=== PATIENT | male | born 1945 | race Caucasian/White ===

== ENCOUNTER 2025-01-11 09:25 | Emergency (ER) | payer OTHER, SELFPAY ==
--- NOTE | ~2025-01-11 | XR_ITS ---
EXAMINATION: XR CHEST CLINICAL INFORMATION: SOB COMPARISON: None available. TECHNIQUE: 2 views of the chest were obtained. FINDINGS: No hyperinflation. No consolidation, pleural effusion or pneumothorax. Cardiomediastinal silhouette size is normal. Multilevel mid to lower thoracic spondylosis. XR/XR chest 2V IMPRESSION: No acute airspace disease. Spondylosis, mid thoracic spine. Electronically signed by: Moris Esquivel MD 01/11/2025 10:41 AM EDT
[2025-01-11 10:03] VITALS: BP 161/75; PULSE 82; RESP 18; TEMP 36.7; O2SAT 96; BMI 29.8
--- NOTE | 2025-01-11 10:08 | ECG_ITS ---
Test Reason : sob Blood Pressure : */* mmHG Vent. Rate : 81 BPM Atrial Rate : 81 BPM P-R Int : 196 ms QRS Dur : 98 ms QT Int : 366 ms P-R-T Axes : 32 122 42 degrees QTcB Int : 425 ms Normal sinus rhythm Right axis deviation Incomplete right bundle branch block Possible Right ventricular hypertrophy Abnormal ECG No previous ECGs available Referred By: Generic ED Physician Electronically Signed By: Yasir Baez
--- NOTE | 2025-01-11 10:10 | PC.NURSE ---
LS CTA in triage
[2025-01-11 10:29] LABS: MANUAL DIFF FLAG NO
[2025-01-11 10:30] LABS: Hematocrit 39.1 % (42.0-52.0); Hemoglobin 13.6 g/dl (14.0-18.0); Imm Gran Abs Auto 0.03 X10*3/uL (0.00-0.03); Imm Gran Pct Auto 0.3 % (0.0-0.4); Lymphocytes Absolute Auto 2.1 X10*3/uL (1.2-4.9); Mean Corpuscular HGB Conc 34.8 g/dl (31.0-36.0); Mean Corpuscular Hemoglobin 30.4 pg (27.0-33.0); Mean Corpuscular Volume 87.5 fL (80.0-98.0); NRBC Abs Auto 0.000 X10*3/uL (0.0-0.012); NRBC Pct Auto 0.0 /100WBC (0.0-0.2); Platelet Count 302 X10*3/uL (160-400); Red Blood Count 4.47 X10*6/uL (4.60-5.80); White Blood Count 9.7 X10*3/uL (4.8-10.8)
[2025-01-11 10:47] LABS: Alanine Aminotransferase 30 U/L (0-40); Albumin Level 4.6 g/dL (3.5-5.0); Alkaline Phosphatase 54 U/L (39-117); Anion Gap 13 (12-20); Aspartate Amino Transferase 27 U/L (5-37); Blood Urea Nitrogen 14 mg/dL (9-16); Calcium 10.9 mg/dL (8.4-10.2); Carbon Dioxide 28 mmol/L (22-29); Chloride 105 mmol/L (96-108); Creatinine Clr Calc Pharmacy 70.6; Estimated Glomerular Filt Rate > 60; Potassium 5.8 mmol/L (3.3-5.1); Sodium 140 mmol/L (135-145); Total Protein 7.4 g/dL (6.5-8.0)
--- NOTE | 2025-01-11 10:51 | ED.SOB ---
HPI - SOB/Dyspnea General Chief Complaint: Dyspnea Stated Complaint: sob few days Time Seen by Provider: 01/11/25 10:49 Source: patient Mode of arrival: ambulatory Limitations: no limitations History of Present Illness ED Provider: Luis Freitas PA-C HPI Narrative: 79 yo male with history of HTN, HLD, very physically active who presents to the ER for evaluation of SOB for the last 4 days. He reports he was able to do his usual exercises and weight lifting on Wednesday and Wednesday without difficulty breathing. He feels like he has to take a deep breath to to get more air. Occurs at rest and when he lays down. Has been sleeping with more pillows. Endoreses nasal congestion, sinus pressure and bilateral eye redness for the last 4 days as well. No cough, chest pain, fever, chills, N/V/D or abdominal pain. He had episode of indigestion Wednesday night that resolved on its own. He has RLE edema that is chronic and unchanged. No known sick contacts. He tried to do a home COVID test and it was and showed no result. He gets COVID vax q6 months. Denies hx COPD, asthma, CHF. Quit smoking in 1986 MD elicited complaint: shortness of breath Onset (ago): day(s) (4) Context: recent illness Timing: intermittent Severity: moderate Exacerbating factors: lying flat Relieving factors: nothing Associated symptoms: other (nasal congestion) Treatment prior to arrival: none Related Data Home oxygen amount: none Previous Rx's ?Medication ?Instructions ?Recorded amlodipine 5 mg tablet 5 mg PO DAILY #30 tabs 01/11/25 fluticasone propionate 50 2 spray intranasal DAILY #16 grams 01/11/25 mcg/actuation nasal spray,suspension (Allergy Relief (fluticasone)) Allergies Allergy/AdvReac Type Severity Reaction Status Date / Time No Known Allergies Allergy Verified 01/11/25 10:07 Review of Systems Review of Systems: Yes all other systems are reviewed and are negative [facility] Social History Social History Advance Directives: Yes Advance Directives Information Provided: Yes Advance Directives on File: No Physical Exam Exam: Exam: Appearance: Alert. Oriented X3. No acute distress. Head: normocephalic, atraumatic. Eyes: Pupils equal, round and reactive to light. Bilateral conjunctival and sclera injection without exudates or discharge. ENT: Pharynx normal. No tonsillar swelling or exudate. Neck: Normal inspection. Neck supple. CVS: Normal heart rate and rhythm. Pulses normal. Respiratory: No respiratory distress. Breath sounds normal. No wheezing or rales. Abdomen: Soft and nontender. +BS x4 Skin: Skin warm and dry. Normal skin color. Normal skin turgor. No rashes. Extremities: mild lower extremity edema of the right lower leg. no calf tenderness bilaterally. No joint swelling. Neuro/psych: Oriented X 3. No motor deficit. No sensory deficit. CN II-XII intact. Normal speech and cognition. Vital Signs: Vital Signs: Last Vital Signs Temp 98.9 F 01/11/25 12:40 Pulse 80 01/11/25 12:40 Resp 16 01/11/25 12:40 BP 153/87 H 01/11/25 12:40 Pulse Ox 95 01/11/25 12:40 O2 Del Method Room Air 01/11/25 12:40 BMI result Body Mass Index 29.8 Medications Administered Discontinued Medications Generic Name Dose Route Start Last Admin Trade Name Freq PRN Reason Stop Dose Admin Sodium Chloride 1,000 mls @ 999 mls/hr 01/11/25 11:15 01/11/25 12:12 Ns IV 01/11/25 12:15 Infused .Q1H1M FARIDEH Infusion Sodium Zirconium Cyclosilicate 10 gm 01/11/25 11:20 01/11/25 11:54 Sodium Zirconium Cyclosilicate 10 Gm Powd.Pack PO 01/11/25 11:21 10 gm ONCE ONE Administration Medical Decision Making Medical Decision Making MDM Narrative: 79 yo healthy male with hx HTN and HLD, very active presenting for evaluation of SOB x4 days along w/ bilateral eye redness, nasal congestion. VSS on arrival, BP slighlty elevated. Not hypoxic. Not SOB or having difficulty breathing. Lung sounds are clear. Concern for viral etiology more so than cardiac with his other symptoms. Labs show normal BNP. no hx CHF. Labs also showing hyperkalemia with K 5.8 and calcium elevated 10.9. denies hx of either. he is on lisinopril. EKG without peaked T waves. given lokelma given 1L IVF for hypercalcemia. he tested positive for COVID-19 which explains his symptoms. he is stable for d/c home with outpatient follow up of his labs. advised to hold lisinopril and start norvasc for HTN return precautions discussed Differential Diagnosis Differential Diagnoses: The differential diagnosis associated with the presentation includes acute CHF, PNA, viral illness, sinus infection, post nasal drip, pulmonary edema, pleural effusion, low suspicion for PE or ACS Admission/Observation Consideration of admission/observation: Escalation of care including admission/observation considered Lab Data MDM Lab Attestation statement: I reviewed the patient's lab results. as above 01/11/25 10:24 01/11/25 10:24 Labs: Lab Results 01/11/25 01/11/25 Range/Units 10:21 10:24 WBC 9.7 (4.8-10.8) X10*3/uL RBC 4.47 L (4.60-5.80) X10*6/uL Hgb 13.6 L (14.0-18.0) g/dl Hct 39.1 L (42.0-52.0) % MCV 87.5 (80.0-98.0) fL MCH 30.4 (27.0-33.0) pg MCHC 34.8 (31.0-36.0) g/dl RDW 12.0 (11.0-16.0) % Plt Count 302 (160-400) X10*3/uL MPV 8.6 L (9.4-12.4) fL Immature Gran % (Auto) 0.3 (0.0-0.4) % Neut % (Auto) 64.3 (45-73) % Lymph % (Auto) 21.8 (20-40) % Kane % (Auto) 9.8 (2-11) % Eos % (Auto) 3.5 (0-4) % Baso % (Auto) 0.3 (0-2) % Lymph # (Auto) 2.1 (1.2-4.9) X10*3/uL Kane # (Auto) 1.0 (0.1-1.2) X10*3/uL Eos # (Auto) 0.3 (0.0-0.4) X10*3/uL Baso # (Auto) 0.0 (0.0-0.2) X10*3/uL Abs Immat Gran (auto) 0.03 (0.00-0.03) X10*3/uL Absolute Neuts (auto) 6.2 (2.0-8.3) x10*3/uL Absolute Nucleated RBC 0.000 (0.0-0.012) X10*3/uL Nucleated RBC % (auto) 0.0 (0.0-0.2) /100WBC Sodium 140 (135-145) mmol/L Potassium 5.8 H (3.3-5.1) mmol/L Chloride 105 (96-108) mmol/L Carbon Dioxide 28 (22-29) mmol/L Anion Gap 13 (12-20) BUN 14 (9-16) mg/dL Creatinine 1.07 (0.5-1.4) mg/dL Estim Creat Clear Calc 70.6 Estimated GFR > 60 Random Glucose 141 H (60-115) mg/dL Calcium 10.9 H (8.4-10.2) mg/dL Total Bilirubin 1.1 H (0.0-1.0) mg/dL AST 27 (5-37) U/L ALT 30 (0-40) U/L Alkaline Phosphatase 54 (39-117) U/L B-Natriuretic Peptide 18 (<100) pg/mL Total Protein 7.4 (6.5-8.0) g/dL Albumin 4.6 (3.5-5.0) g/dL Influenza Type A (PCR) NEGATIVE (Negative) Influenza Type B (PCR) NEGATIVE (Negative) RSV RNA Qual (PCR) NEGATIVE (Negative) SARS-CoV-2 RNA (RT-PCR) POSITIVE A (Negative) Independent Interpretation I performed an independent interpretation of an: EKG and Plain X-Ray Interpretation: EKG with normal sinus rhythm, HR 81 bpm, incomplete RBBB, no ST segment elevations or depressions, no peaked T waves CXR wtihout focal consolidation or effusion Radiology Impression Discussion of test interpretation with radiology: I have reviewed the radiologist's reading. Independent Historian Clinical information obtained from an independent historian. History obtained from or confirmed by: Spouse Prescription Management I considered prescription management with: Antiviral and Antibiotic no role for paxlovid Chronic Conditions Patient?s care impacted by: Hypertension Critical Care Time Critical Care Time Critical Care Time: No Discharge Plan Discharge Clinical Impression: COVID-19, Hyperkalemia, Hypercalcemia Acute viral conjunctivitis Qualifiers: Laterality: bilateral Qualified Code(s): B30.9 - Viral conjunctivitis, unspecified Patient Disposition: Home, Self-Care Instructions: COVID-19 (Coronavirus Disease 2019) (ED), How to Recover from COVID-19 at Home (ED) Additional Instructions: You were found to be COVID-19 POSITIVE today. Your chest x-ray and oxygen levels were normal. Rest. Drink plenty of fluids. Take over the counter cold/flu medications as needed for your symptoms. Take Tylenol and/or Motrin as needed for fevers and body aches. Use the prescribed nasal spray for your rhinitis. You were found to have mildly elevated potassium and calcium levels. The potassium was likely a side effect of your lisinopril, recommend holding this until your labs can be repeated by your PCP. Monitor your blood pressure at home. You can take the prescribed amlodipine 5mg for hypertension while you are holding the lisinopril. Follow up with your doctor this week. If you shortness of breath worsens, if you develop difficulty breathing or any other concerning symptom come back to the ER for further evaluation. Prescriptions: New amlodipine 5 mg tablet 5 mg PO DAILY Qty: 30 0RF fluticasone propionate [Allergy Relief (fluticasone)] 50 mcg/actuation spray,suspension 2 spray intranasal DAILY Qty: 16 0RF Rx Instructions: administer into each nostril Referrals: Dali Arias MD [Primary Care Provider, Internal Medicine] Interventions: ED Discharge Assessment Last Done: 01/11/25 12:40 Discharge Date/Time: 01/11/25 12:41 Print Language: Upper Sorbian
[2025-01-11 10:52] LABS: B Type Natriuretic Peptide 18 pg/mL (<100)
[2025-01-11 11:10] LABS: Resp Syncy Virus RNA Qual PCR NEGATIVE (Negative); SARS COV2 PCR INHOUSE POSITIVE (Negative)
[2025-01-11 11:13] VITALS: BP 153/87; PULSE 80; RESP 16; TEMP 37.2; O2SAT 95
[2025-01-11 12:40] VITALS: BP 153/87; PULSE 80; RESP 16; TEMP 37.2; O2SAT 95
--- OUTSIDE RECORDS SUMMARY | 2025-01-11 12:44 | XMS_ITS | Encounter Summary ---
Author Organization [facility] Address [address] [place] [address] Care Team Providers Care Roughener Name Role Phone Dali Arias MD Primary Care Provider Reason for Visit * Reason Onset Date Comments chest congestion 01/11/2025 Shortness of Breath 01/11/2025 Encounter Details Date Type Department Care Team (Late st Contact Info) Description 01/11/2025 Nurse Triage Adult Medicine [facility] [address] [address], [place] [phone] Dali Arias MD [address] [place] [address] chest congestion; Shortness of Breath Social History Tobacco Use Types Packs/Day Years Used Date Smoking Tobacco: Former Cigarettes Q uit: 08/29/1986 Smokeless Tobacco: Never Alcohol Use Standard Drinks/Week Comments No 0 (1 standard drink = 0.6 oz pur e alcohol) Housing Instability Answer Date Recorde d Are you worried that in the next 2 months you may not have stable housing? No 08/08/2024 Food Access & Nutrition Answer Date Rec orded Do you have access to a vari ety of food including fruits and vegetables? Yes 08/08/2024 Access to Healthcare Answer Date Record ed Within the last 3 months, ho w many times did you visit the emergency department for your medical care? 0 08/08/2024 Health Literacy Answer Date Recorded How often do you need to hav e someone help you when you read instructions, pamphlets, or other written material from your doctor or pharmacy? Never 08/08/2024 Caregiver: How often do you need to have someone help you when you read instructions, pamphlets, or other written material from your doctor or pharmacy? Not on file 08/08/2024 Financial Risk Answer Date Recorded How hard is it for you to pa y for the very basics like food, housing, medical care, and air conditioning / heating? Patient declined 08/08/2024 Transportation Answer Date Recorded Has the lack of transportati on kept you from meetings, work, or from getting things needed for daily living? No Has the lack of transportati on kept you from medical appointments or from getting medications? No 08/08/2024 Social Isolation Answer Date Recorded How often do you feel lonely or isolated from th ose around you? Never 08/08/2024 Food Risk Answer Date Recorded Within the past 12 months we worried whether our food would run out before we got money to buy more. Never true 08/08/2024 Within the past 12 months th e food we bought just didn't last and we didn't have money to get more. Never true 08/08/2024 Dependent Care Answer Date Recorded Do you need help finding or paying for care for your loved ones. For example, childbirth educator or elderly care for an older adult? Patient declined 08/08/2024 Education Answer Date Recorded Do you think completing more education or training, like finishing a GED, going to college, or learning a trade, would be helpful for you? N/A 08/08/2024 Employment and Income Answer Date Recor ded During the last four weeks, have you been actively looking for work? No 08/08/2024 Living Situation Answer Date Recorded What is your living situation? 0 08/08/2024 Sex and Gender Information Value Date Recorded Sex Assigned at Not on file Legal Sex Male 8:51 PM EST Gender Identity Not on file Sexual Orientation Not on file documented as of this encounter Progress Notes * Pearl Harmon RN - 01/11/2025 8:45 AM EDT Pt was instructed to go to the ER for further evaluation and treatment. He is in agreement with this plan and states he will go to [facility] ER. He was encouraged to call for an appointment after he is evaluated in the ER. Pt is sleeping with head of bed elevated or sitting up because he is more comfortable. No shortnessof breath at rest. He reports shortness of breath with activity. Reason for Disposition [1] MILD difficulty breathing (e.g., minimal/no SOB at rest, SOB with walking, pulse < 100) AND [2] NEW-onset or WORSE than normal Answer Assessment - Initial Assessment Questions 1. RESPIRATORY STATUS: Describe your breathing? (e.g., wheezing, shortness of breath, unable to speak, severe coughing) He is reporting shallow breathing but feels need for deep breath 2. ONSET: When did this breathing problem begin? 01/08/25. His eyes are also red r/t low air quality because of smoke 3. PATTERN Does the difficult breathing come and go, or has it been constant since it started? Constant 4. SEVERITY: How bad is your breathing? (e.g., mild, moderate, severe) Moderate. He states his breathing was improving throughout the day and worsens again in the evening. Today his symptoms symptoms are worse than they have been. 5. RECURRENT SYMPTOM: Have you had difficulty breathing before? If Yes, ask: When was the last time? and What happened that time? No 6. CARDIAC HISTORY: Do you have any history of heart disease? (e.g., heart attack, angina, bypasssurgery, angioplasty) No 7. LUNG HISTORY: Do you have any history of lung disease? (e.g., pulmonary embolus, asthma, emphysema) He states he had a partially collapsed lung. No history of PE or DVT 8. CAUSE: What do you think is causing the breathing problem? Unknown 9. OTHER SYMPTOMS: Do you have any other symptoms? (e.g., chest pain, cough, dizziness, fever, runny nose) Runny nose and very intermittent cough. He states he coughs 5-6 times a day. 10. O2 SATURATION MONITOR: Do you use an oxygen saturation monitor (pulse oximeter) at home? If Yes, ask: What is your reading (oxygen level) today? What is your usual oxygen saturation reading? (e.g., 95%) No 11. : Is there any chance you are ? When was your last menstrual period? No. Pt is a male. 12. TRAVEL: Have you traveled out of the country in the last month? (e.g., travel history, exposures) He went to [place] in October. No recent air travel. Protocols used: Breathing [id number] * Shira Castillo - 01/11/2025 8:33 AM EDT Patient call requires triage: Symptoms patient is presenting: patient is calling in with chest congestion. He states its getting worse to where he is beginning to have labored breathing. He states he feels like he can move aroundbut he doesn't feel like he's getting enough air. He sleeps sitting up and that helps. He feels like every other breath should be a deep breath. He states that his stomach is also upset. He said it feels like he's got indigestion and gas pressing into his diagram. He took antiacids but that didn't do anything for him. How long has patient had these symptoms?: Day 4 For ALL patients calling to schedule any appointment (routine, sick visit, follow up, consult, etc.) in the outpatient setting please ask the following questions: Do you have fever of higher than 101, sore throat with difficulty swallowing or severe shortness ofbreath? yes If YES to any of these above symptoms, send a message to triage and do not book. Red dot. If no, an audio or video visit should be booked. Have you had close contact with someone with Coronavirus in the last 14 days? no Have you traveled abroad? no Have you traveled recently to another state outside of [place], [place], [place], [place], [place], [place], [place]? no o If yes, did you quarantine for 14 days or have a negative covid test? no If yes to any of the above, patient is not to be scheduled in office until after 14 day quarantine or negative covid test. If pain or injury related was it due to an accident at work or from a motor vehicle accident? If yes, date of accident/Injury: No If yes, gather 3rd constitution party insurance information Third Constitution Party Information: not applicable PCP: Dali Arias MD Payor: [facility] / [place] [facility] [place] Product Type: *No Product type* / documented in this encounter Plan of Treatment Upcoming Encounters Date Type Department Care Team (Late st Contact Info) Description 03/09/2025 2:30 PM EDT Office Visit Adult Medicine [facility] [address] [place] [phone] Jess Christy PA [address] [place] [address] documented as of this encounter Visit Diagnoses Not on filedocumented in this encounter Additional Health Concerns Assessment Noted Time PHQ-9 Depression Total Score: 0 08/09/19 25 1:23 PM EDT documented as of this encounter Care Teams Roughener Relationship Specialty Start Date End Date Dali Arias MD [address] [place] [id number] PCP - General Internal Medicine 08/05/21 documented as of this encounter
== END 2025-01-11 12:41 | disposition home or self-care (01) ==
PROVIDERS: Emergency Provider Emergency Medicine; PCP Internal Medicine
DX: U07.1 COVID-19 (principal); E87.5 Hyperkalemia; E83.52 Hypercalcemia; B30.9 Viral conjunctivitis, unspecified; R06.02 Shortness of breath
CPT/HCPCS: 71046; 80053; 83880; 85025; 87637; 93005; 96360; 99284

== ENCOUNTER → 2025-01-11 10:08 | Outpatient (BNV) | payer BC, SELFPAY | PROVIDERS: Emergency Provider Emergency Medicine; PCP Internal Medicine; Visit Provider Radiology Diagnostic Radiology | DX: R06.02 Shortness of breath (principal); M47.814 Spondylosis without myelopathy or radiculopathy, thoracic region | CPT/HCPCS: 71046 ==

== ENCOUNTER → 2025-01-11 10:08 | Outpatient (BNV) | payer OTHER, SELFPAY | PROVIDERS: Emergency Provider Emergency Medicine; PCP Internal Medicine; Visit Provider Internal Medicine Cardiovascular Disease | DX: I45.10 Unspecified right bundle-branch block (principal) | CPT/HCPCS: 93010 ==

== ENCOUNTER 2025-01-23 11:55 | Emergency (ER) | payer OTHER, SELFPAY ==
--- OUTSIDE RECORDS SUMMARY | 2025-01-22 11:30 | XMS_ITS | Encounter Summary ---
Author Organization [facility] Address [address] [place] [address] Care Team Providers Care Preprint Analyst Name Role Phone Dali Arias MD Primary Care Provider [phone] Reason for Visit * Reason Comments er follow up Encounter Details Date Type Department Care Team ([facility] st Contact Info) Description 01/22/2025 11:30 AM EDT Office Visit Adult Medicine [facility] [address] [place] [address] Katie Delgado PA [address] [place] [address] COVID-19 (Primary Dx); Primary hypertension; Serum potassium elevated; Serum calcium elevated; Type 2 diabetes mellitus with obesity ([facility] V24, [facility] V28) Social History Tobacco Use Types Packs/Day Years Used Date Smoking Tobacco: Former Cigarettes Q uit: 08/29/1986 Smokeless Tobacco: Never Tobacco Cessation:Counseling Given: Not Answered Alcohol Use Standard Drinks/Week Comments No 0 [...] care for your loved ones. For example, child day care teacher or elderly care for an older adult? [...] on file documented as of this encounter Last Filed Vital Signs Vital Sign Reading Time Taken Comments Blood Pressure 127/76 01/22/2025 11:36 AM EDT Pulse 69 01/22/2025 11:36 AM EDT Temperature 36.4 C (97.6 F) 01/22/2025 11:33 AM EDT Respiratory Rate 14 01/22/2025 11:33 AM EDT Oxygen Saturation 98% 01/22/2025 11:33 AM EDT Inhaled Oxygen Concentration - - Weight 99 kg (218 lb 3.2 oz) 01/22/2025 11:33 AM EDT Height 182.9 cm (6') 01/22/2025 11:33 AM EDT Body Mass Index 29.59 01/22/2025 11:33 AM EDT documented in this encounter Ordered Prescriptions Prescription Sig Dispense Quantity Refills Last Filled Start Date End Date amLODIPine (NORVASC) 5 mg tablet Take 1 tablet (5 mg total) by mouth 1 (one) time each day. 90 tablet 01/23/2025 documented in this encounter Progress Notes * CHRISTOPHER Erickson - 01/22/2025 11:30 AM EDTAddended by: KATIE DELGADO on: 01/23/2025 10:40 AM Modules accepted: Orders * CHRISTOPHER Erickson - 01/22/2025 11:30 AM EDT CHIEF COMPLAINT: er follow up IDENTIFIER: Danny Ochoa is a 79 y.o. old male. HPI: Patient presents to the office today for reevaluation following recent COVID-19 illness. On 01/11/2025 patient presented to [facility] emergency room reporting 4 days of shortness of breath. Reported sensation of needing to take a deep breath to get more air. Reported nasal congestion, sinus pressure, eye redness/irritation. Had an episode of indigestion. Chronic unchanged right lower extremity edema. Took COVID-19 home test which showed no result. Examination revealed conjunctival/scleral injection without exudates or discharge. Mild right lower extremity edema. Normal BNP. Potassium elevated at 5.8 and calcium of 10.9. EKG without peaked T waves. Chest x-ray without effu homar or consolidation. Patient was given Lokelma and 1 L of IV fluids. Was positive for COVID-19. Was advised to hold lisinopril and begin amlodipine. Was prescribed Flonase nasal spray. Was advised on close follow-up with PCP to recheck lab work and BP. Today patient reports drastic improvement. No longer having nasal congestion, sinus pressure, or eye redness. Shortness of breath has resolved. He is tolerating amlodipine well. Denies dizziness or worsening leg swelling. Has diet-controlled diabetes with recent A1c adequately controlled at 7%. ROS: GENERAL: SEE HPI HEENT: SEE HPI NECK: SEE HPI RESPIRATORY: SEE HPI CARDIOVASCULAR: No chest pain, leg swelling or palpitations GI: SEE HPI MUSCULOSKELETAL: See HPI SKIN: No lesions, rash or itching NEURO: No persistent headache, syncope, seizures, weakness or numbness PAST MEDICAL HISTORY: Patient Active Problem List Diagnosis Date Noted History of prostate cancer Tubular adenoma 08/12/2023 Hyperlipidemia 08/06/2022 Obesity (BMI 30.0-34.9) 08/06/2022 Hypertension 04/10/2022 Type 2 diabetes mellitus with obesity ([facility] V24, [facility] V28) 03/18/2020 SOCIAL HISTORY: Social History Tobacco Use Smoking status: Former Current packs/day: 0.00 Types: Cigarettes Quit date: 08/29/1986 Years since quittin.4 Smokeless tobacco: Never Substance Use Topics Alcohol use: No FAMILY HISTORY: Family Status Relation Name Status Mother Father MGM MGF PGM PGF Son (Not Specified) No partnership data on file Family History Problem Relation Name Age of Onset Bipolar disorder Mother COPD Father Alcohol abuse Maternal Grandfather Breast cancer Paternal Grandmother s/p masectomy in her 70's Other cancer Son osteosarcoma rt femur (raphael) ACTIVE MEDICATIONS: Outpatient Medications Marked as Taking for the 01/22/25 encounter (Office Visit) with CHRISTOPHER Erickson Medication Sig Dispense Refill amLODIPine (NORVASC) 5 mg tablet Take 1 tablet (5 mg total) by mouth 1 (one) time each day. atorvastatin (LIPITOR) 10 mg tablet Take 1 tablet (10 mg total) by mouth at bedtime. at bedtime. 90tablet 1 cholecalciferol (VITAMIN D-3) 25 mcg (1,000 unit) tablet Take 1 tablet (1,000 Units total) by mouth1 (one) time each day. fluticasone propionate (FLONASE) 50 mcg/actuation nasal spray Administer 2 sprays into each nostril1 (one) time each day. Shake liquid lisinopriL (PRINIVIL,ZESTRIL) 10 mg tablet Take 1 tablet (10 mg total) by mouth at bedtime. 90 tablet 1 multivitamin with minerals tablet Take by mouth 1 (one) time each day. ALLERGIES: Doxycycline monohydrate and Other PHYSICAL EXAM: Blood pressure 127/76, pulse 69, temperature 36.4 ??C (97.6 ??F), temperature source Temporal, resp. rate 14, height 1.829 m (72 ), weight 99 kg (218 lb 3.2 oz), SpO2 98%. Body mass index is 29.59 kg/m??. BMI is greater than 25.0 (above the normal range) - see Plan APPEARANCE: Alert and in no acute distress, appears comfortable EYES: Conjunctiva and sclera normal. NOSE: Nares normal. Mucosa normal. No drainage. MOUTH/THROAT: No stridor. No tripoding. No dysphonia/hoarseness. No trismus. Airway patent. HEART: RRR with normal S1 and S2, no murmurs LUNG: Patient is speaking in full, clear sentences. No increased work of breathing is appreciated. Lungs are clear to auscultation without wheezes, rales, or rhonchi. EXTREMITIES: Extremities warm and well perfused without clubbing, cyanosis. Trace right ankle edema. NEURO: Awake, alert and oriented x 3. SKIN: Skin color, texture, turgor normal. No rashes or lesions. LABS: See HPI/PLAN Lab Results Component Value Date NA 140 08/15/2024 K 4.3 08/15/2024 CL 105 08/15/2024 CO2 27 08/15/2024 GLUCOSE 131 (H) 08/15/2024 BUN 13 08/15/2024 CREATININE 1.07 08/15/2024 CALCIUM 9.6 08/15/2024 PROT 7.3 08/15/2024 ALBUMIN 4.0 08/15/2024 BILITOT 0.9 08/15/2024 AST 24 08/15/2024 ALT 37 08/15/2024 ALKPHOS 57 08/15/2024 EGFR 71 08/15/2024 Lab Results Component Value Date HGBA1C 7.0 (H) 12/07/2024 IMPRESSION: 1. COVID-19 2. Primary hypertension 3. Serum potassium elevated 4. Serum calcium elevated 5. Type 2 diabetes mellitus with obesity ([facility] V24, [facility] V28) PLAN: COVID-19: Acute illness resolved. Blood pressure elevated on arrival although improved on 5-minute average to normal level. Tolerating amlodipine well therefore will continue as directed. For now patient will continue without lisinopril. Await results to determine further therapeutic options and or additional interventions. Diabetes is well- controlled. Will continue to monitor. Continue with low-sodium and low carbohydrate diet and regular activity. Patient understands and agrees to plan. Patient will return to the office for routine care with PCPteam in 6-weeks as scheduled. Will contact the office sooner with any problems or concerns. Orders Placed This Encounter Procedures Comprehensive metabolic panel Standing Status: Future Number of Occurrences: 1 Standing Expiration Date: 01/22/2026 ADDITIONAL ORDERS: None CHRISTOPHER Erickson on 01/22/2025 at 12:12 PM EDT documented in this encounter Plan of Treatment Upcoming Encounters Date Type Department Care Team (Late st Contact Info) Description 03/09/2025 2:30 PM EDT Office Visit Adult Medicine [facility] [address] [place] [phone] Jess Christy PA [address] [place] [address] Scheduled Orders Name Type Priority Associated Diagnoses Orde r Schedule Basic metabolic panel Lab Routine Primary hypertension Serum calcium elevated 1 Occurrences starting 01/23/2025 until 01/23/2026 documented as of this encounter Results * (ABNORMAL) Comprehensive metabolic panel (01/22/2025 12:01 PM EDT) Sodium 137 133 - 145 mmol/L LAB CHEMISTRY METHOD 01/22/2025 4:57 PM EDT [facility] Potassium 4.9 3.5 - 5.5 mmol/L LAB CHEMISTRY METHOD 01/22/2025 4:57 PM EDT [facility] Chloride 103 96 - 110 mmol/L LAB CHEMISTRY METHOD 01/22/2025 4:57 PM EDT [facility] CO2 30 21 - 32 mmol/L LAB CHEMISTRY METHOD 01/22/2025 4:57 PM [facility] Anion Gap 4 3 - 11 LAB CHEMISTRY METHOD 01/22/2025 4:57 PM [facility] Glucose 113(H) 70 - 100 mg/dL LAB CHEMISTRY METHOD 01/22/2025 4:57 PM [facility] BUN 9 5 - 25 mg/dL LAB CHEMISTRY METHOD 01/22/2025 4:57 PM [facility] Creatinine 1.08 0.70 - 1.30 mg/dL LAB CHEMISTRY METHOD 01/22/2025 4:57 PM [facility] eGFR 71 >=60 mL/min/1. 73m2 LAB CHEMISTRY METHOD 01/22/2025 4:57 PM [facility] Comment:Calculation based on the Chronic Kidney Disease Epidemiology Collaboration (CKD-EPI) equation refit without adjustment for race. BUN/Creatinine Ratio 8.3 LAB CHEMISTRY METHOD 01/22/2025 4:57 PM [facility] Calcium 10.9(H) 8.5 - 10.5 mg/dL LAB CHEMISTRY METHOD 01/22/2025 4:57 PM [facility] AST (SGOT) 25 10 - 42 unit/L LAB CHEMISTRY METHOD 01/22/2025 4:57 PM [facility] ALT (SGPT) 41 10 - 60 unit/L LAB CHEMISTRY METHOD 01/22/2025 4:57 PM [facility] Alkaline Phosphatase 59 42 - 121 unit/L LAB CHEMISTRY METHOD 01/22/2025 4:57 PM [facility] Total Protein 7.3 6.0 - 8.0 g/dL LAB CHEMISTRY METHOD 01/22/2025 4:57 PM [facility] Albumin 4.0 3.2 - 5.0 g/dL LAB CHEMISTRY METHOD 01/22/2025 4:57 PM EDT [facility] Total Bilirubin 0.8 0.0 - 1.4 mg/dL LAB CHEMISTRY METHOD 01/22/2025 4:57 PM EDT [facility] Blood Venous blood specimen / Unknown Venipuncture / Unknown 01/22/2025 12:01 PM EDT 01/22/2025 12:01 PM EDT us Katie WHITE LAB BLOOD ORDERABLES Final Resul t [facility] [address] [place] [address], documented in this encounter Visit Diagnoses Diagnosis COVID-19- Primary Primary hypertension Unspecified essential hypertension Serum potassium elevated Hyperpotassemia Serum calcium elevated Hypercalcemia Type 2 diabetes mellitus with obesity ([facility] V24, [facility] V28) documented in this encounter Discontinued Medications Medication Sig Discontinue Reason Start Date End Da te amLODIPine (NORVASC) 5 mg tablet Take 1 tablet (5 mg total) by mouth 1 (one) time each day. Reorder 01/11/2025 01/23/2025 documented as of this encounter Historical Medications * This list may reflect changes made after this encounter. fluticasone propionate (FLONASE) 50 mcg/actuation nasal spray Administer 2 sprays into each nostril 1 (one) time each day. Shake liquid 01/11/2025 amLODIPine (NORVASC) 5 mg tablet Take 1 tablet (5 mg total) by mouth 1 (one) time each day. 01/11/2025 5 added in this encounter Additional Health Concerns Assessment Noted Time PHQ-9 Depression Total Score: 0 08/09/19 25 1:23 PM EDT documented as of this encounter Care Teams Preprint Analyst Relationship Specialty Start Date End Date Dali Arias MD [address] [place] [address] PCP - General Internal Medicine 08/05/21 documented as of this encounter
--- NOTE | ~2025-01-23 | XR_ITS ---
EXAMINATION: XR CHEST CLINICAL INFORMATION: Pneumonia? COMPARISON: January 11, 2025 TECHNIQUE: Frontal view of the chest was obtained. FINDINGS: Small vague opacity is present in the lateral base of the right lung. Lungs are clear otherwise. Heart size is within normal limits. Hilar structures are within normal limits. XR/XR chest 1V IMPRESSION: There is a new small vague opacity in the right lateral lung base that could represent a developing pneumonia or atelectasis Electronically signed by: Rufino De Jesus MD 01/23/2025 01:00 PM EDT
--- NOTE | ~2025-01-23 | US_ITS ---
EXAMINATION: US TRIPLEX LOWER EXTREMITY, BILATERAL CLINICAL INFORMATION: Edema, lower extremities. COMPARISON: None available. TECHNIQUE: Color-flow triplex imaging with spectral analysis and compression Doppler were performed on the bilateral lower extremities. FINDINGS: Respiratory variation, normal compression and augmented flow are demonstrated in the interrogated common femoral vein, superficial femoral vein, profunda femoral vein, popliteal vein and midcalf peroneal and posterior tibial venous segments, both lower extremities. There is no Bowden's cyst. US/US venous duplex LE BI IMPRESSION: No acute deep venous thrombosis interrogated veins, bilateral lower extremities. Negative for DVT. Electronically signed by: Moris Esquivel MD 01/23/2025 01:34 PM EDT
--- NOTE | 2025-01-23 12:05 | ECG_ITS ---
Test Reason : SOB Blood Pressure : */* mmHG Vent. Rate : 93 BPM Atrial Rate : 93 BPM P-R Int : 210 ms QRS Dur : 88 ms QT Int : 346 ms P-R-T Axes : 53 118 44 degrees QTcB Int : 430 ms Sinus rhythm with 1st degree A-V block Right axis deviation Possible Right ventricular hypertrophy Abnormal ECG When compared with ECG of 11-Jan-2025 10:13, No significant change was found Referred By: Generic ED Physician Electronically Signed By: MAYURI PICKARD
[2025-01-23 12:07] VITALS: BP 155/78; PULSE 94; RESP 18; TEMP 36.9; O2SAT 97; BMI 29.6
--- NOTE | 2025-01-23 12:16 | ED_ITS ---
HPI - General Adult General Chief complaint: Dyspnea Stated complaint: SOB Time Seen by Provider: 01/23/25 15:45 Source: patient and family (patient's ) Mode of arrival: ambulatory Limitations: no limitations History of Present Illness ED Provider: Katelyn Hearn PA-C HPI narrative: Patient is a 79 year old assigned male at with a history of recent COVID- 19 presenting to the emergency department today with gradually worsening shortness of breath. Patient states that over the last few days he has had worsening shortness of breath even though he was feeling better after his COVID diagnosis. Patient states that he seems to be fine during the day and as the night comes on - the trouble starts. Patient denies any other complaints at this time. Related Data Previous Rx's ?Medication ?Instructions ?Recorded amlodipine 5 mg tablet 5 mg PO DAILY #30 tabs 01/11 fluticasone propionate 50 2 spray intranasal DAILY #16 grams 01/11/25 mcg/actuation nasal spray,suspension (Allergy Relief (fluticasone)) amoxicillin 875 mg-potassium 1 tab PO BID 5 days #10 t abs 01/23/25 clavulanate 125 mg tablet doxycycline hyclate 100 mg tablet 100 mg PO BID 5 days #10 tabs 01/23/25 Allergies Allergy/AdvReac Type Severity Reaction Status Date / Time No Known Allergies Allergy Verified 01/23/25 12:09 Review of Systems 2 Constitutional: Constitutional: Reports as per HPI Eyes: Eyes: Reports as per HPI ENT: Reports as per HPI Cardiovascular: Cardiovascular: Reports as per HPI Respiratory: Comments: shortness of breath at night Gastrointestinal: Gastrointestinal: Reports as per HPI Genitourinary: Genitourinary: Reports as per HPI Musculoskeletal: Musculoskeletal: Reports as per HPI Integumentary/Breasts: Skin/Breast: Reports as per HPI Neurologic: Reports as per HPI Psychiatric: Psychiatric: Reports as per HPI Endocrine: Endocrine: Reports as per HPI Hematologic/Lymphatic: Hematologic/Lymphatic: Reports as per HPI Allergic/Immunologic: Allergic/Immunologic: Reports as per HPI [facility] Past Medical History Attestation statement: The following information was validated with the patient. (all information was validated with the patient's ) Source: old records reviewed, obtained from family (patient's provided additional history and confirmed the history provided by the patient. ) and nursing notes reviewed Social History Social History Advance Directives: Yes Advance Directives Information Provided: Yes Advance Directives on File: No Physical Exam ED Vital Signs: Vital Signs - 24 hr 01/23/25 16:17 Temperature 98.4 F Pulse Rate 94 Respiratory Rate 18 Blood Pressure 155/78 H Pulse Oximetry 97 Oxygen Delivery Method Room Air BMI result Body Mass Index 29.6 Const General: cooperative, no acute distress, alert and awake Nutritional Appearance: well nourished Orientation/consciousness: patient oriented x3 HENMT Head: Yes normal to inspection and Yes atraumatic Ears: hearing grossly normal bilaterally and external ears normal General nose exam: Normal external nose present, no nasal discharge noted and no epistaxis Face and sinus: Yes normal facial exam, No abrasion and No laceration Mouth: Normal oral and palatal mucosa present, no drooling and no muffled voice Eyes General: appearance normal, both eyes and all related structures Periorbital: periorbital findings normal Eyelids: Yes eyelids normal Conjunctivae: conjunctivae normal Pupils: Equal, round and reactive pupils present EOM: EOMs intact bilaterally Neck Neck: Yes normal visual inspection and Yes full ROM Resp Effort & Inspection: normal respiratory effort and able to speak in complete sentences Neuro General: patient oriented x3, moves all extremities and CN's II-XI intact bilaterally Cranial nerves: Yes Equal, round and reactive pupils present Cognition (Neuro): normal cognition Extrem General: Yes normal to inspection, Yes full ROM and Yes capillary refill normal Psych Appearance: grossly normal Mental Status: mental status grossly normal Affect: normal affect Attitude: cooperative Thought process: Normal thought process present Thought content: Normal thought content present Insight: Good insight present (Psych) Course Course Course Narrative: RME: 79-year-old male recently diagnosed with COVID presents to the ED shortness of breath without any chest pain or coughing up blood. Patient states having to sleep up at night due to shortness of breath. Patient diagnosed with COVID last week took a COVID test this morning negative. Exam positive for bilateral lower extremity swelling. Labs ultrasound x-ray ordered Medical Decision Making Medical Decision Making MDM Narrative: Patient is a 79 year old assigned male at with a history of recent COVID- 19 presenting to the emergency department today with gradually worsening shortness of breath. Patient's physical exam was unremarkable. Patient's blood work was unremarkable. Patient's EKG was unremarkable. Patient's chest x-ray showed evidence of PNA in the RLL. US (ordered by the provider in triage) of both the lower legs showed no evidence of DVT. I explained my physical exam findings as well as all test results to the patient and the patient's . I answered all questions asked by the patient and the patient's . Patient's clinical presentation is most consistent with pneumonia. I stressed the importance of the patient taking his medication as directed (either prescribed or as the over the counter packaging recommends). I stressed the importance of the patient following up with his primary care provider. I stressed the importance of the patient returning to the emergency department immediately if his symptoms were to worsen or if he were to develop any dizziness, shortness of breath, difficulty breathing, chest pain, blurry vision, loss of vision, nausea, vomiting, abdominal pain, fever, chills, back pain, or any other complaints. Patient and the patient's verbalized agreement and understanding with this treatment plan and discharge. Differential Diagnosis Differential Diagnoses: The differential diagnosis associated with the presentation includes Pneumonia Viral illness COVID-19 Influenza Admission/Observation Consideration of admission/observation: Escalation of care including admission/observation considered Patient would have been admitted to the hospital had his work up had any findings where hospital admission was appropriate and his clinical presentation warranted hospital admission. Lab Data [facility] Lab Attestation statement: I reviewed the patient's lab results. My interpretation of these results are in the [facility] Rationale portion of this note. 01/23/25 12:26 01/23/25 12:26 Labs: Lab Results 01/23/25 01/23/25 Range/Units 12:26 15:34 WBC 10.5 (4.8-10.8) X10*3/uL RBC 4.70 (4.60-5.80) X10*6/uL Hgb 14.1 (14.0-18.0) g/dl Hct 40.6 L (42.0-52.0) % MCV 86.4 (80.0-98.0) fL MCH 30.0 (27.0-33.0) pg MCHC 34.7 (31.0-36.0) g/dl RDW 12.3 (11.0-16.0) % Plt Count 307 (160-400) X10*3/uL MPV 8.6 L (9.4-12.4) fL Immature Gran % (Auto) 0.3 (0.0-0.4) % Neut % (Auto) 68.6 (45-73) % Lymph % (Auto) 19.7 L (20-40) % Giles % (Auto) 8.1 (2-11) % Eos % (Auto) 3.0 (0-4) % Baso % (Auto) 0.3 (0-2) % Lymph # (Auto) 2.1 (1.2-4.9) X10*3/uL Giles # (Auto) 0.9 (0.1-1.2) X10*3/uL Eos # (Auto) 0.3 (0.0-0.4) X10*3/uL Baso # (Auto) 0.0 (0.0-0.2) X10*3/uL Abs Immat Gran (auto) 0.03 (0.00-0.03) X10*3/uL Absolute Neuts (auto) 7.2 (2.0-8.3) x10*3/uL Absolute Nucleated RBC 0.000 (0.0-0.012) X10*3/uL Nucleated RBC % (auto) 0.0 (0.0-0.2) /100WBC PT 12.0 (10.9-12.4) SEC INR 1.0 (0.9-1.1) APTT 31.1 (26.7-34.1) SEC Sodium 141 (135-145) mmol/L Potassium 4.6 D (3.3-5.1) mmol/L Chloride 105 (96-108) mmol/L Carbon Dioxide 27 (22-29) mmol/L Anion Gap 14 (12-20) BUN 13 (9-16) mg/dL Creatinine 1.02 (0.5-1.4) mg/dL Estim Creat Clear Calc 73.8 Estimated GFR > 60 Random Glucose 140 H (60-115) mg/dL Calcium 10.4 H (8.4-10.2) mg/dL Total Bilirubin 1.1 H (0.0-1.0) mg/dL AST 32 (5-37) U/L ALT 43 H (0-40) U/L Alkaline Phosphatase 59 (39-117) U/L Troponin I High Sens 3.3 4.5 (<3.5-35.0) ng/L B-Natriuretic Peptide 14 (<100) pg/mL Total Protein 7.4 (6.5-8.0) g/dL Albumin 4.6 (3.5-5.0) g/dL Independent Interpretation I performed an independent interpretation of an: EKG, Plain X-Ray and Ultrasound Interpretation: My interpretation is in agreement with the radiologist's impression of these imaging studies. L EXAMINATION: US TRIPLEX LOWER EXTREMITY, BILATERAL CLINICAL INFORMATION: Edema, lower extremities. COMPARISON: None available. TECHNIQUE: Color-flow triplex imaging with spectral analysis and compression Doppler were performed on the bilateral lower extremities. FINDINGS: Respiratory variation, normal compression and augmented flow are demonstrated in the interrogated common femoral vein, superficial femoral vein, profunda femoral vein, popliteal vein and midcalf peroneal and posterior tibial venous segments, both lower extremities. There is no Bowden's cyst. US/US venous duplex LE IMPRESSION: No acute deep venous thrombosis interrogated veins, bilateral lower extremities. Negative for DVT. Electronically signed by: Moris Esquivel MD 01/23/2025 01:34 PM EDT RP Dictated By: Moris Morrissey MD Signed By: Electronically signed by Moris Goldberg MD 01/23/25 1334 EXAMINATION: XR CHEST CLINICAL INFORMATION: Pneumonia? COMPARISON: January 11, 2025 TECHNIQUE: Frontal view of the chest was obtained. FINDINGS: Small vague opacity is present in the lateral base of the right lung. Lungs are clear otherwise. Heart size is within normal limits. Hilar structures are within normal limits. XR/XR chest 1V IMPRESSION: There is a new small vague opacity in the right lateral lung base that could represent a developing pneumonia or atelectasis Electronically signed by: Rufino De Jesus MD 01/23/2025 01:00 PM EDT Dictated By: Rufino De Jesus MD Signed By: Electronically signed by Rufino De Jesus MD 01/23/25 1300 I independently interpreted this EKG and am in agreement with the below findings: Vent. Rate: 93 BPM Atrial Rate: 93 BPM P-R Int: 210 ms QRS Dur: 88 ms QT Int: 346 ms P-R-T Axes: 53 118 44 degrees QTcB Int: 430 ms Sinus rhythm with 1st degree A-V block Right axis deviation Possible Right ventricular hypertrophy When compared with ECG of 11-Jan-2025 10:13, No significant change was found DD/ [id number] Radiology Impression Discussion of test interpretation with radiology: I have reviewed the radiologist's reading. Independent Historian Clinical information obtained from an independent historian. History obtained from or confirmed by: Spouse (Patient's provided additional history and confirmed the history provided by the patient. ) Prescription Management I considered prescription management with: Antibiotic (patient prescribed antibiotics for CAP) Discharge Plan Discharge Clinical Impression: PNA (pneumonia) Patient Disposition: Home, Self-Care Instructions: Community Acquired Pneumonia (DC) Additional Instructions: Your imaging showed evidence of pneumonia in the right lateral lung base. Take your antibiotics as prescribed and avoid the direct sunlight the entire time you are on the medication. IF you are prescribed home medications and/or you are taking over the counter medications at home - it is very important you continue to do so as prescribed / directed unless told otherwise. Follow up with your primary care provider. Return to the emergency department immediately if your symptoms worsen or if you develop any numbness, tingling, dizziness, shortness of breath, difficulty breathing, chest pain, blurry vision, loss of vision, nausea, vomiting, abdominal pain, fever, chills, back pain, or any other complaints. Please see the information below about our Patient Portal. If you are not yet enrolled in the [facility] Patient Portal, you will receive an enrollment email invitation following your visit to any [facility] setting. You may also self-enroll in the Patient Portal by visiting our website: [email or web address] The following information is required to access the Patient Portal: - Your [facility] Medical Record Number - Your personal home email address (must match what is in your electronic medical record, Registration staff can assist with this) - Name - Date of Capabilities of the Patient Portal: - Message some providers - View upcoming appointments - Access your health summary, medical history, and visit history - View current conditions and allergies - View procedure and lab results - View your medications, including guidelines, side effects, and precautions - Complete pre-appointment questionnaires requested by your provider - Ready summary reports of your office visits and procedures To access the Patient Portal Mobile [employer], follow these directions: - Search Managed Objects in the [employer] Store or [employer] Store - Download the [employer] - Search for [facility] - Enter your login/password Prescriptions: New doxycycline hyclate 100 mg tablet 100 mg PO BID 5 Days Qty: 10 0RF amoxicillin-pot clavulanate 875-125 mg tablet 1 tab PO BID 5 Days Qty: 10 0RF No Action amlodipine 5 mg tablet 5 mg PO DAILY Qty: 30 0RF fluticasone propionate [Allergy Relief (fluticasone)] 50 mcg/actuation spray,suspension 2 spray intranasal DAILY Qty: 16 0RF Rx Instructions: administer into each nostril Referrals: Dali Arias MD [Primary Care Provider, Internal Medicine] Interventions: ED Discharge Assessment Last Done: 01/23/25 16:17 Discharge Date/Time: 01/23/25 16:17 Print Language: Maltese
[2025-01-23 12:31] LABS: MANUAL DIFF FLAG NO
[2025-01-23 12:34] LABS: Hematocrit 40.6 % (42.0-52.0); Hemoglobin 14.1 g/dl (14.0-18.0); Imm Gran Abs Auto 0.03 X10*3/uL (0.00-0.03); Imm Gran Pct Auto 0.3 % (0.0-0.4); Lymphocytes Absolute Auto 2.1 X10*3/uL (1.2-4.9); Mean Corpuscular HGB Conc 34.7 g/dl (31.0-36.0); Mean Corpuscular Hemoglobin 30.0 pg (27.0-33.0); Mean Corpuscular Volume 86.4 fL (80.0-98.0); NRBC Abs Auto 0.000 X10*3/uL (0.0-0.012); NRBC Pct Auto 0.0 /100WBC (0.0-0.2); Platelet Count 307 X10*3/uL (160-400); Red Blood Count 4.70 X10*6/uL (4.60-5.80); White Blood Count 10.5 X10*3/uL (4.8-10.8)
[2025-01-23 12:38] LABS: INTERNATIONAL NORM RATIO 1.0 (0.9-1.1); Prothrombin Time 12.0 SEC (10.9-12.4)
[2025-01-23 12:41] LABS: Partial Thromboplastin Time 31.1 SEC (26.7-34.1)
[2025-01-23 12:46] LABS: Alanine Aminotransferase 43 U/L (0-40); Albumin Level 4.6 g/dL (3.5-5.0); Alkaline Phosphatase 59 U/L (39-117); Anion Gap 14 (12-20); Aspartate Amino Transferase 32 U/L (5-37); Blood Urea Nitrogen 13 mg/dL (9-16); Calcium 10.4 mg/dL (8.4-10.2); Carbon Dioxide 27 mmol/L (22-29); Chloride 105 mmol/L (96-108); Creatinine Clr Calc Pharmacy 73.8; Estimated Glomerular Filt Rate > 60; Potassium 4.6 mmol/L (3.3-5.1); Sodium 141 mmol/L (135-145); Total Protein 7.4 g/dL (6.5-8.0)
[2025-01-23 12:53] LABS: B Type Natriuretic Peptide 14 pg/mL (<100); Troponin-I High Sensitivity 3.3 ng/L (<3.5-35.0)
[2025-01-23 16:00] LABS: Troponin-I High Sensitivity 4.5 ng/L (<3.5-35.0)
[2025-01-23 16:17] VITALS: BP 155/78; PULSE 94; RESP 18; TEMP 36.9; O2SAT 97
--- OUTSIDE RECORDS SUMMARY | 2025-01-23 16:28 | XMS_ITS | Clinical Summary ---
Author Organization [facility] [address] [place] [address] [place] [phone] Phone Care Team Providers Care Saw Tailer Name Role Phone Dali Arias MD Primary Care Provider [phone] Allergies Active Allergy Reactions Criticality Noted Date Comments Doxycycline Monohydrate 08/12/2023 Redness Other 01/02/2008 Seasonal Allergies Invironmental as well Medications cholecalcifero l (VITAMIN D-3) 25 mcg (1,000 unit) tablet Take 1 tablet (1,000 Units total) by mouth 1 (one) time each day. Active multivitamin with minerals tablet Take by mouth 1 (one) time each day. Active atorvastatin (LIPITOR) 10 mg tablet Take 1 tablet (10 mg total) by mouth at bedtime. at bedtime. 90 tablet 1 5 Active lisinopriL (PRINIVIL,ZEST RIL) 10 mg tablet Take 1 tablet (10 mg total) by mouth at bedtime. 90 tablet 1 5 Active fluticasone propionate (FLONASE) 50 mcg/actuation nasal spray Administer 2 sprays into each nostril 1 (one) time each day. Shake liquid 5 Active amLODIPine (NORVASC) 5 mg tablet Take 1 tablet (5 mg total) by mouth 1 (one) time each day. 90 tablet 5 Active amLODIPine (NORVASC) 5 mg tablet Take 1 tablet (5 mg total) by mouth 1 (one) time each day. 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 Robles Resolved Problems Problem Noted Date Diagnosed Date Resolved Date Hearing loss 08/16/2024 Overview (08/16/2024): COMMENT: Left ear History of wrist fracture Overview (08/16/2024): Left Encounters Date Type Department Care Team Description 01/23/2025 Telephone Adult Medicine [address] [phone] Page Delgado PA 01/22/2025 11:30 AM EDT Office Visit Adult Medicine [address] [phone] Page Delgado PA COVID-19 (Primary Dx); Primary hypertension; Serum potassium elevated; Serum calcium elevated; Type 2 diabetes mellitus with obesity ([facility] V24, [facility] V28) 01/11/2025 Telephone Adult Medicine [address] [phone] Yolis Kwon MA 01/11/2025 Nurse Triage Adult Medicine [address] [phone] Dali Arias MD 12/07/2024 1:00 PM EDT Office Visit Adult Medicine [address] [phone] Dali Arias MD Primary hypertension (Primary Dx); Other hyperlipidemia; Type 2 diabetes mellitus with obesity ([facility] V24, [facility] V28) from Last 3 Months Immunizations Name Administration Dates Next Due COVID-19 (Moderna/Spikevax) 12yo and older 08/19/2023 Influenza Quadravalent, 0.5m l (Fluzone High-dose) 65yo and older 03/03/2022 Influenza trivalent, 0.5mL ( Fluad) 65yo and older 02/16/2024,02/10/2023,03/03/2022,03/19,03/14/2020,03/09/2019,03/10/2018 ,03/18/2017,03/05/2016,02/14/2015 Influenza trivalent, 0.5mL ( Fluzone High-dose) 65yo and older 02/16/2024,02/10/2023,03/19/2021,03/14,03/09/2019,03/10/2018,03/18/2017 ,03/05/2016,02/14/2015 Influenza trivalent, 0.5mL, preservative free (Fluarix; FluLaval; Fluzone) ages 6mo and older (Afluria) 3 years and older 03/08/2014 Influenza trivalent, with pr eservative (Fluzone; Afluria) 6mo and older 03/08/2014 Influenza, Unspecified 03/03/2022 Moderna (age 6mo & older) Bi valent, COVID-19, 0.5 mL or 0.25 mL dosage 10/09/2022,03/03/2022 Moderna SARS-CoV-2 COVID-19, mRNA, LNP-S, preservative free 08/19/2023 Pneumococcal conjugate 13 va lent (Prevnar 13, PCV13) 2mo and older 07/17/2015 Pneumococcal polysaccharide 23 valent (Pneumovax 23) 2yo and older 2012 RSV, bivalent, protein subun it RSVpreF, 0.5mL, Preservative Free (Arexvy) 60yo and older 03/11/2023 Respiratory syncytial virus (RSV), unspecified 03/11/2023 SARS-COV-2 (COVID-19) Vaccin e, Unspecified 10/09/2022,03/03/2022 Td Tetanus diptheria (Tdvax) 7yo and older 04/10/2022 Tdap Tetanus diptheria acell ular pertussis (Boostrix; Adacel) 7yo and older 04/10/2022,2012 Zoster recombinant (Shingrix ) 19yo and older 06/22/2020,04/23/2020 Surgical History Surgery Date Site/Laterality Comments OTHER SURGICAL HISTORY 1996 hydrocele repair VASECTOMY 1994 HERNIA REPAIR 1994 inguinal bilateral COLONOSCOPY 2001 Normal; [place] [facility] [place] 2011 Normal PROSTATE SURGERY 2015 Medical History Medical History Date Comments Hydrocele Left wrist fracture Hearing loss Left ear Prostate cancer ([facility] V24, [facility] V28) 2016 Hypertension 04/10/2022 Family History Medical History Relation Name Comments COPD Father Alcohol abuse Maternal Grandfather Bipolar disorder Mother Breast cancer Paternal Grandmother s/p ma sectomy in her 70's Other cancer Son osteosarcoma rt femur (raphael) Relation Name Status Comments Father Maternal Grandfather Maternal Grandmother Mother Paternal Grandfather Paternal Grandmother Son Social History Tobacco Use Types Packs/Day Years [...] Record ed Within the last 3 months, francesco hernandez many times did you visit the emergency [...] care for your loved ones. For example, children teacher or elderly care for an older [...] on file Sexual Orientation Not on file Obstetrics History Last Filed Vital Signs Vital Sign Reading [...] Mass Index 29.59 01/22/2025 11:33 AM EDT Plan of Treatment Upcoming Encounters Date Type Department Care Team (Late st Contact Info) Description 03/09/2025 2:30 PM EDT Office Visit Adult Medicine [facility] [address] [place] [phone] Jess Christy PA [address] [place] [address] Health Maintenance Due Date Last Done Comments Diabetes: Annual Foot Exam 1955 Diabetes: Annual Retina Eye Exam 1955 Influenza Vaccine (#1) 2025 , 02/16/2024, 02/10/2023, Additional history exists COVID-19 Vaccine (9 - Moderna risk season) 2025 08/21/2024, 08/19/2023, 08/19/2023, Additional history exists Diabetes: Blood Sugar Control Test (HGBA1C) 06/09/2025 12/07/2024, 08/15/2024, 02/16/2024, Additional history exists Social Influencers of Health Screening 08/08/2025 08/08/2024 Diabetes: Annual Urine Albumin-Creatinine Ratio (uACR) 08/15/2025 08/15/2024, 08/13/2023 Falls Risk Assessment 08/15/2025 08/15/2024, 024 Medicare Annual Wellness Visit 08/15/2025 08/15/2024 Diabetes: Annual GFR (Glomerular Filtration Rate) 01/22/2026 01/22/2025, 08/15/2024, 11/10/2023, Additional history exists Hypertension/CHF/CAD Annual BMP Blood Test 01/22/2026 01/22/2025, 08/15/2024, 11/10/2023, Additional history exists Cholesterol Screening (Lipid Panel) 11/09/2028 11/10/2023, 11/10/2023 DTaP,Tdap,and Td Vaccines (4 - Td or Tdap) 04/10/2032 04/10/2022, 04/10/2022, 2012 Hepatitis C Screening Completed 02/27/2013 Pneumococcal Vaccine: 50+ Years Completed 07/17/2015, 2012 Zoster Vaccines Completed 06/22/2020, 04/23/2020 RSV Immunization Adult Patients Completed 03/11/2023, 03/11/2023 RSV Immunization Patients Under 20 months Aged Out 03/11/2023 No longer eligible based on patient's age to complete this topic Depression Screening Completed 08/08/2024 HIB Vaccines Aged Out No longer eligi ble based on patient's age to complete this topic HPV Vaccines Aged Out No longer eligi ble based on patient's age to complete this topic Hepatitis A Vaccines Aged Out No long er eligible based on patient's age to complete this topic Hepatitis B Vaccines Aged Out No long er eligible based on patient's age to complete this topic IPV Vaccines Aged Out No longer eligi ble based on patient's age to complete this topic MMR Vaccines Aged Out No longer eligi ble based on patient's age to complete this topic Meningococcal ACWY Vaccine Aged Out N o longer eligible based on patient's age to complete this topic Meningococcal B Vaccine Aged Out No l onger eligible based on patient's age to complete this topic Varicella Vaccines Aged Out No longer eligible based on patient's age to complete this topic Procedures Procedure Name Priority Date/Time Associated Diagnosis Comments COMPREHENSIVE METABOLIC PANEL Routine 01/22/2025 12:01 PM EDT Primary hypertension Serum potassium elevated Serum calcium elevated HEMOGLOBIN A1C Routine 12/07/2024 1:21 PM EDT Type 2 diabetes mellitus with obesity ([facility] V24, [facility] V28) MICROALBUMIN CREATININE URINE RATIO Routine 08/15/2024 1:49 PM EDT Mixed hyperlipidemia Primary hypertension Type 2 diabetes mellitus with obesity ([facility] V24, [facility] V28) LIPID PANEL Routine 11/10/2023 HM FALLS RISK ASSESSMENT Routine 08/12/2023 HEPATITIS C SCREENING Routine 02/27/2013 from Last 3 Months or Most Recently Relevant to Health Maintenance Results * (ABNORMAL) Comprehensive metabolic panel (01/22/2025 12:01 PM EDT) Sodium 137 133 - 145 mmol/L LAB CHEMISTRY METHOD 01/22/2025 4:57 PM [facility] Potassium 4.9 3.5 - 5.5 mmol/L LAB CHEMISTRY METHOD 01/22/2025 4:57 PM [facility] Chloride 103 96 - 110 mmol/L LAB CHEMISTRY METHOD 01/22/2025 4:57 PM [facility] CO2 30 21 - 32 mmol/L LAB CHEMISTRY METHOD 01/22/2025 4:57 PM [facility] Anion Gap 4 3 - 11 LAB CHEMISTRY METHOD 01/22/2025 4:57 PM [facility] Glucose 113(H) 70 - 100 mg/dL LAB CHEMISTRY METHOD 01/22/2025 4:57 PM [facility] BUN 9 5 - 25 mg/dL LAB CHEMISTRY METHOD 01/22/2025 4:57 PM [facility] Creatinine 1.08 0.70 - 1.30 mg/dL LAB CHEMISTRY METHOD 01/22/2025 4:57 PM [facility] eGFR 71 >=60 mL/min/1. 73m2 LAB CHEMISTRY METHOD 01/22/2025 4:57 PM [facility] Comment:Calculation based on the Chronic Kidney Disease Epidemiology Collaboration (CKD-EPI) equation refit without adjustment for race. BUN/Creatinine Ratio 8.3 LAB CHEMISTRY METHOD 01/22/2025 4:57 PM [facility] Calcium 10.9(H) 8.5 - 10.5 mg/dL LAB CHEMISTRY METHOD 01/22/2025 4:57 PM [facility] AST (SGOT) 25 10 - 42 unit/L LAB CHEMISTRY METHOD 01/22/2025 4:57 PM EDT [facility] ALT (SGPT) 41 10 - 60 unit/L LAB CHEMISTRY METHOD 01/22/2025 4:57 PM EDT [facility] Alkaline Phosphatase 59 42 - 121 unit/L LAB CHEMISTRY METHOD 01/22/2025 4:57 PM EDT [facility] Total Protein 7.3 6.0 - 8.0 g/dL LAB CHEMISTRY METHOD 01/22/2025 4:57 PM EDT [facility] Albumin 4.0 3.2 - 5.0 g/dL LAB CHEMISTRY METHOD 01/22/2025 4:57 PM EDT [facility] Total Bilirubin 0.8 0.0 - 1.4 mg/dL LAB CHEMISTRY METHOD 01/22/2025 4:57 PM EDT [facility] Blood Venous blood specimen / Unknown Venipuncture / Unknown 01/22/2025 12:01 PM EDT 01/22/2025 12:01 PM EDT Page WHITE LAB BLOOD ORDERABLES Final Resul t [facility] [address] [place] [address], * (ABNORMAL) Hemoglobin A1c (12/07/2024 1:21 PM EDT) Hemoglobin A1C 7.0(H) <6.5 % LAB CHEMISTRY METHOD 12/07/2024 9:49 PM EDT [facility] Mean Bld Glu Estim. 154 mg/dL LAB CHEMISTRY METHOD 12/07/2024 9:49 PM EDT [facility] Blood Venous blood specimen / Unknown Venipuncture / Unknown 12/07/2024 1:21 PM EDT 12/07/2024 1:21 PM EDT Dali Arias MD LAB BLOOD ORDERABLES Final Resul t [facility] [address] [place] [address], [place] [phone] * Microalbumin creatinine urine ratio (08/15/2024 1:49 PM EDT) Pathologist [facility] Creatinine, Urine 37.0 mg/dL LAB CHEMISTRY METHOD 08/15/2024 5:45 PM EDT [facility] Microalb, Ur <5.0 0.0 - 29.0 mg/L LAB CHEMISTRY METHOD 08/15/2024 5:45 PM EDT [facility] Microalb/Creat Ratio <14 <30 mg/g creat LAB CHEMISTRY METHOD 08/15/2024 5:45 PM EDT [facility] Urine Urine specimen from urethra / Unknown Non-blood Collection / Unknown 08/15/2024 1:49 PM EDT 08/15/2024 1:49 PM EDT Jess WHITE LAB URINE ORDERABLES Final Re sult [facility] [address] [place] [address], [place] [phone] * Lipid panel (11/10/2023) LDL/HDL Ratio 2 0 - 4 Triglycerides 67 0 - 150 mg/dL Cholesterol 129 0 - 200 mg/dL HDL 59 >=40 mg/dL LDL Cholesterol 57 0 - 100 mg/dL Blood Venous blood specimen / Unknown Historical Provider LAB BLOOD ORDERABLES Johnna l Result * Falls Risk Assessment (08/12/2023) Pathologist [facility] Falls Risk Assessment Abstracted Historical Provider HEALTH MAINTENANCE Final Result * Hepatitis C Screening (02/27/2013) Hepatitis C Screening Abstracted Historical Provider HEALTH MAINTENANCE Final Result from Last 3 Months or Most Recently Relevant to Health Maintenance Insurance [employer] Care Teams Saw Tailer Relationship Specialty Start Date End Date Dali Arias MD [address] [place] [address] PCP - General Internal Medicine 08/05/21
--- OUTSIDE RECORDS SUMMARY | 2025-01-23 16:28 | XMS_ITS | Encounter Summary ---
Author Organization [facility] [place] [address] Care Team Providers Care Cutter Operator Name Role Phone Dali Arias MD Primary Care Provider [phone] Reason for Visit * Reason Onset Date Comments Nasal Congestion 01/23/2025 Shortness of Breath 01/23/2025 Encounter Details Date Type Department Care Team ([facility] st Contact Info) Description 01/23/2025 Telephone Adult Medicine [facility] [address] [place] [phone] Page Delgado PA [address] [place] [address] Social History Tobacco Use Types Packs/Day Years [...] for your loved ones. For example, child abuse worker or elderly care for an older adult? [...] Progress Notes * Pearl Harmon RN - 01/23/2025 10:47 AM EDT He is reporting head congestion, chest congestion and an upset stomach. He reports shortness of breath at rest. No fever. He denies an earache. He is using Flonase as directed with slight improvement in his symptoms. He was instructed to go to the ER for further evaluation and treatment. He is in agreement with this plan and states he will go to [facility] ER. He was advised to call the office for a follow up appointment after he is evaluated in the ER. * Olesya Ybarra - 01/23/2025 8:55 AM EDT Patient call requires triage: Symptoms patient is presenting: Patient was seen yesterday by Page for an ER follow up for covid. States yesterday he felt great. At night he started having some sob and this morning he feels likehe is back to where he started. States stuffy nose, can't take deep breath, feel sob, upset stomachand heartburn. Wants to know what he should do now - he is speaking in full sentences. How long has patient had these symptoms?: 2 days For ALL patients calling to schedule any appointment (routine, sick visit, follow up, consult, etc.) in the outpatient setting please ask the following questions: Do you have fever of higher than 101, sore throat with difficulty swallowing or severe shortness ofbreath? no If YES to any of these above symptoms, send a message to triage and do not book. Red dot. If no, an audio or video visit should be booked. Have you had close contact with someone with Coronavirus in the last 14 days? no Have you traveled abroad? no Have you traveled recently to another state outside of [place], [place], [place], [place], [place], [place], [place]? no o If yes, did you quarantine [...] of accident/Injury: No If yes, gather 3rd libertarian insurance information Third Republican Information: not applicable PCP: Dali Arias MD Payor: [facility] [facility] / [facility] / Product Type: *No Product type* / documented in this encounter Plan of Treatment Upcoming Encounters Date Type Department Care Team (Late st Contact Info) Description 03/09/2025 2:30 PM EDT Office Visit Adult Medicine [facility] [address] [place] [address] Jess Christy PA [address] [place] [address] documented as of this encounter Visit Diagnoses Not on filedocumented in this encounter Additional Health Concerns Assessment Noted Time PHQ-9 Depression Total Score: 0 08/09/19 25 1:23 PM EDT documented as of this encounter Care Teams Cutter Operator Relationship Specialty Start Date End Date Dali Arias MD [address] [place] [address] PCP - General Internal Medicine 08/05/21 documented as of this encounter
== END 2025-01-23 16:17 | disposition home or self-care (01) ==
PROVIDERS: Physician Assistant; Emergency Provider Emergency Medicine Emergency Medical Services; PCP Internal Medicine
DX: J18.9 Pneumonia, unspecified organism (principal); Z79.899 Other long term (current) drug therapy
CPT/HCPCS: 36415; 71045; 80053; 83880; 84484; 85025; 85610; 85730; 93005; 93970; 99283; 99284

== ENCOUNTER → 2025-01-23 12:05 | Outpatient (BNV) | payer OTHER, SELFPAY | PROVIDERS: Emergency Provider Emergency Medicine Emergency Medical Services; PCP Internal Medicine; Visit Provider Internal Medicine | DX: I44.0 Atrioventricular block, first degree (principal) | CPT/HCPCS: 93010 ==

== ENCOUNTER → 2025-01-23 12:13 | Outpatient (BNV) | payer MEDICARE, SELFPAY | PROVIDERS: PCP Internal Medicine; Visit Provider Radiology Diagnostic Radiology | DX: R06.02 Shortness of breath (principal) | CPT/HCPCS: 93970 ==